=== PATIENT | male | born 2005 | race Caucasian/White ===

== ENCOUNTER → 2025-04-21 | Outpatient (CLI) | payer OTHER, SELFPAY ==
[2025-04-24 14:09] LABS: Sickle Hgb Solubility Negative (Negative)
== END | disposition home or self-care (01) ==
LOC: MTLAB 08:28
PROVIDERS: PCP Pediatrics; Referring Provider Pediatrics; Visit Provider Pediatrics
DX: Z02.5 Encounter for examination for participation in sport (principal)
CPT/HCPCS: 36415; 85660